=== PATIENT | female | born 1980 | race Caucasian/White ===

== ENCOUNTER 2024-09-15 10:38 | Emergency (ER) | payer OTHER ==
[~2024-09-15] VITALS: Ht 167.6 cm; Wt 107.6 kg
[2024-09-15] MEDS: LIDOCAINE HCL 2% LOCAL 20 ML VIAL INJ ONE (10:53)
[2024-09-15] MEDS ORDERED: IOPAMIDOL 370 MG/ML 100 ML INFUS..BTL INJ ONE (11:20)
[2024-09-15] MEDS ORDERED: LIDOCAINE HCL 2% LOCAL 20 ML VIAL ONE (12:48)
[2024-09-15 14:08] VITALS: PULSE 93; RESP 17; TEMP 98.5; O2SAT 99
[2024-09-15] MEDS ORDERED: SODIUM CHLORIDE 0.9% 100 ML ONE (14:12)
[2024-09-15] MEDS: CEFTRIAXONE 1 GM VIAL IV ONE (14:14)
[2024-09-15] MEDS: KETOROLAC TROMETHAMINE 30 MG/ML VIAL IV STA (14:14)
[2024-09-15] MEDS ORDERED: DOXYCYCLINE HY100 MG PO (14:46)
== END 2024-09-15 15:08 | disposition home or self-care (01) ==
LOC: FSED 10:45
DX: L02.31 Cutaneous abscess of buttock (principal); N20.0 Calculus of kidney; K42.9 Umbilical hernia without obstruction or gangrene
CPT/HCPCS: 74177; 80053; 85025; 99283; J0696; J1885; J2003; J7050; Q9967